=== PATIENT | female | born 1995 | race Caucasian/White ===

== ENCOUNTER 2020-09-30 09:00 | Inpatient (IN) | payer MEDICAID, SELFPAY ==
[2020-09-30] VITALS (39 sets, daily range): BP systolic 99–137; BP diastolic 50–95; PULSE 63–94; RESP 14–18; TEMP 36.1–37.2; BMI 40.5
[2020-09-30] MEDS: lactated ringers 1,000 ML 999 ML IV (09:45)
[2020-09-30 10:07] LABS: Basophils % 0.2 %; Eosinophils # 0.2 10^3/uL (0.0-0.8); Eosinophils % 1.2 %; Hematocrit 38.9 % (37.0-47.0); Hemoglobin 13.2 g/dL (11.5-15.3); Lymphocytes # 1.9 10^3/uL (0.8-4.8); Lymphocytes % 10.4 %; Mean Corpuscular HGB Conc 33.9 g/dL (30.0-36.0); Mean Corpuscular Volume 85.5 fl (81-99); Mean Platelet Volume 11.1 fL (7.4-10.4); Monocytes % 5.8 %; Neutrophils # 14.59 10^3/uL (1.8-7.7); Neutrophils % 81.6 %; Nucleated Red Blood Cells % 0 %; Platelet Count 232 10^3/cmm (130-400); Red Blood Count 4.55 10^6/uL (4.1-5.3); Red Cell Distribution Width 14.2 % (12.1-15.1); White Blood Count 17.9 10^3/uL (4.0-10.0)
--- NOTE | 2020-09-30 10:44 | P.ANESASSM_ITS ---
Pre-Anesthetic Assessment Pre-Anesthetic Assessment: Height/Weight: Temp Pulse BP 97.2 F L 80 137/68 09/30/20 08:50 09/30/20 10:10 09/30/20 10:10 Preop Diagnosis: IUP Proposed Procedure: Epidural Familial anesthetic complications: none Was Beta Guicho taken within 24 hours: N/A Was Clonidine taken within 24 hours: N/A Last intake: > 8 hrs Social: Social History: No alcohol and No tobacco Exam: Pre-Anes Outpt Exam: alert and oriented x 3 Airway: Dentition: Full Anesthetic Plan: ASA status: 2 Anesthesia: Regional (specify below) Risk of > 500 ml blood loss (7ml/kg in children): Yes, adequate IV access and fluids planned Data Anesthesia CBC & Chem 7: 09/30/20 09:20 Other Labs: Laboratory Results - last 48 hr 09/30/20 09:20 WBC 17.9 H RBC 4.55 Hgb 13.2 Hct 38.9 MCV 85.5 MCH 29.0 MCHC 33.9 RDW 14.2 Plt Count 232 MPV 11.1 H Neut % (Auto) 81.6 Lymph % (Auto) 10.4 [place] % (Auto) 5.8 Eos % (Auto) 1.2 Baso % (Auto) 0.2 Neut # (Auto) 14.59 H Lymph # (Auto) 1.9 [place] # (Auto) 1.0 H Eos # (Auto) 0.2 Baso # (Auto) 0.0 Nucleated RBC % (auto) 0 Nucleated RBCs # 0.0 Cardiac Studies: No Data to Display
[2020-09-30] MEDS: dextrose 5%-lactated ringers 1,000 ML 125 ML IV (11:04)
[2020-09-30] MEDS: oxytocin 30 UNIT/500 ML BAG 600 UNIT IV (11:06)
--- NOTE | 2020-09-30 11:10 | PM.OPHPUD ---
Labor & Delivery H&P Update Date of Procedure: September 30, 2020 Date H&P Performed: 09/29/20 H&P update information: I have reviewed H&P completed within last 30 days and Changes to prior documentation as noted here Changes to previous documentation: The patient was 4 cm dilated on admission to the hospital Admission Diagnosis: Preop diagnosis: IUP Planned procedure: Spontaneous vaginal delivery Related Problem List Diagnoses (1) 37 weeks gestation of : (2) Active labor:
--- NOTE | 2020-09-30 11:12 | PM.DELIVERY ---
Delivery Note: Date of delivery: September 30, 2020 Pre-delivery diagnoses: Multigravida 37-week female presenting in active labor Delivering Physician: Mohsen Castro Estimated blood loss (mL): 150 Pre-Delivery Course: The patient presented to the hospital having consistent contractions. She was checked and found to be 4 cm dilated. Her membranes were intact. She desired an epidural. Unfortunately she progressed very quickly, and she was unable to sit up for the epidural. She was GBS negative. Her had been relatively unremarkable. Her blood type was O+. Delivery: DELIVERY: The patient progressed to complete without difficulty. She delivered a male with a weight of 7 pounds 8 ounces with Apgars of 7, 9. The baby was delivered from the RASHEEDA position and placed on the mother's abdomen. The cord was then clamped and cut 1 minute after delivery. There was no nuchal cord. There was no meconium. The placenta and 3 vessel cord were delivered intact shortly thereafter. The perineum and vaginal vault were carefully examined. A first-degree posterior midline tear was noted that did not require repair. Both the mother and the baby were in stable condition. Post-Delivery Status: Good A&P Assessment and plan (1) 37 weeks gestation of : Status: Acute (2) Active labor: Status: Acute Coding Level of Care Code Acute Simulation Specialist for Chg Fwd Diagnoses 37 weeks gestation of Z3A.37 Active labor
[2020-09-30] MEDS: ibuprofen 800 mg tablet PO ×2 (13:56→21:03)
[2020-09-30] MEDS: docusate sodium 100 mg Capsule PO (18:09)
[2020-09-30] MEDS: benzocaine-menthol 78 gm Canister 1 SPRAY TOPICAL (21:03)
[2020-09-30] MEDS: lanolin oint 7 gm 1 APPLIC TOPICAL (21:03)
[2020-09-30 23:04] LABS: Hemoglobin 11.4 g/dL (11.5-15.3); Mean Corpuscular HGB Conc 32.6 g/dL (30.0-36.0); Mean Corpuscular Hemoglobin 28.6 pg (28.0-34.0); Mean Corpuscular Volume 87.9 fl (81-99); Mean Platelet Volume 10.3 fL (7.4-10.4); Platelet Count 228 10^3/cmm (130-400); Red Blood Count 3.98 10^6/uL (4.1-5.3); Red Cell Distribution Width 14.3 % (12.1-15.1); White Blood Count 19.9 10^3/uL (4.0-10.0)
[2020-10-01] VITALS (7 sets, daily range): BP systolic 93–117; BP diastolic 51–64; PULSE 60–130; RESP 14–19; TEMP 35.8–36.4; O2SAT 98
--- NOTE | 2020-10-01 06:33 | PM.OBGYDC ---
Discharge Providers GEOGRAPHY DEPARTMENT CHAIR Date of Admission: 09/30/20 09:00 Date of Discharge: 10/01/20 Attending Provider at Admission: Mohsen Castro MD Attending Provider at Discharge: Mohsen Castro MD Primary Care Provider: Daksha Kulkarni DO Diagnoses at Discharge Discharge Diagnosis (1) 37 weeks gestation of : Status: Acute (2) Active labor: Status: Acute Reason for Visit Reason for Visit: Abdominal pain Hospital Course Hospital Course The patient presented to the hospital on she quickly progressed to complete and had an unremarkable delivery of a healthy-appearing 37-week male infant. Her course was also unremarkable. Her bleeding was within normal limits. Her pain after delivery was well controlled. She initially breast-fed, but then became concerned when the baby was fussing and elected to also bottlefeed as well. Information Peripartum Data: Infant Delivery Method: Vaginal Physical Exam Narrative: EXAM NARRATIVE: The patient is alert. She appears comfortable. Her heart has a regular rate and rhythm with no murmurs appreciated. Lungs are clear to auscultation bilaterally. Her fundus is firm and below the umbilicus. Discharge Data Data Completed and Pending: Labs from last 24 hours 09/30/20 09/30/20 22:58 09:20 WBC 19.9 H 17.9 H RBC 3.98 L 4.55 Hgb 11.4 L 13.2 Hct 35.0 L 38.9 MCV 87.9 85.5 MCH 28.6 29.0 MCHC 32.6 33.9 RDW 14.3 14.2 Plt Count 228 232 MPV 10.3 11.1 H Neut % (Auto) 81.6 Lymph % (Auto) 10.4 [place] % (Auto) 5.8 Eos % (Auto) 1.2 Baso % (Auto) 0.2 Neut # (Auto) 14.59 H Lymph # (Auto) 1.9 [place] # (Auto) 1.0 H Eos # (Auto) 0.2 Baso # (Auto) 0.0 Nucleated RBC % (a uto) 0 Nucleated RBCs # 0.0 Vitals: Last Vital Signs Temp 97.5 F L 10/01/20 03:59 Pulse 64 10/01/20 04:00 Resp 14 10/01/20 04:00 BP 93/52 10/01/20 04:00 Discharge Plan Discharge Patient Disposition: Home Condition: Stable Prescriptions: New ibuprofen 800 mg Tablet 800 mg PO TID Qty: 45 RF: 0 Continued [id number] 1 mg Tablet PO RF: 0 Zoloft 50 mg Tablet 50 mg PO DAILY RF: 0 Discontinued folic acid 5 mg Capsule 5 mg PO DAILY RF: 0 Discharge Orders: Discharge Order (Routine); Ordered 10/01/20 Ordered By: Mohsen Castro Referrals: Mohsen Castro MD [Physician] - 6 Weeks Discharge Diet: Usual diet Discharge Activity: Limit activity as instructed Patient Instructions: Opioid Safety Discharge Attestations GEOGRAPHY DEPARTMENT CHAIR Time Spent in Discharge Care*: less than 30 min Specific Discharge Activities: Specific discharge activities: educating patient Coding Level of Care Code Acute Assistant Terminal Manager for Chg Fwd Diagnoses 37 weeks gestation of Z3A.37 Active labor
[2020-10-01] MEDS: prenatal vitamin Capsule 1 CAP PO (08:01)
[2020-10-01] MEDS: ibuprofen 800 mg tablet PO (08:01)
[2020-10-01] MEDS: docusate sodium 100 mg Capsule PO (08:01)
== END 2020-10-01 13:10 | disposition home or self-care (01) | DRG 807 ==
PROVIDERS: Admitting Provider Family Medicine; PCP Family Medicine; Visit Provider Family Medicine
DX: O80 Encounter for full-term uncomplicated delivery (principal); Z37.0 Single live birth; Z3A.37 37 weeks gestation of pregnancy
CPT/HCPCS: 12345; 36415; 59025; 59409; 85025; 85027; 98960; 99211